=== PATIENT | female | born 1955 | race Caucasian/White ===

== ENCOUNTER 2020-05-09 10:58 | Inpatient (IN) | payer MEDICAID ==
[~2020-05-09] VITALS: Ht 167.6 cm; Wt 69.4 kg
--- NOTE | 2020-05-09 10:58 | NUR ---
PT BIBRA FROM HOME C/O SOB AND BLE SWELLING. PT IS AAOX4, NOT IN RESPIRATORY DISTRESS, HOOKED TO MANAGER PMO, KEPT RESTED AND COMFORTABLE. WILL CONTINUE TO MONITOR.
--- NOTE | 2020-05-09 11:11 | NUR ---
SEEN AND EXAMINED BY .
--- NOTE | 2020-05-09 11:25 | NUR ---
IV LINE ESTABLISHED BLOOD DRAWN AND SENT TO LAB.
--- NOTE | 2020-05-09 11:28 | NUR ---
PEDIATRIC UROLOGIST AT BEDSIDE FOR XRAY.
[2020-05-09 11:35] LABS: LYMPHOCYTES # (AUTO) 0.5 /CMM (0.8-4.8); MONOCYTES # (AUTO) 0.5 /CMM (0.1-1.30)
[2020-05-09 11:39] LABS: BASOPHILS % (AUTO) 0.4 % (0.0-2.0); LYMPHOCYTES % (AUTO) 4.2 % (20.0-44.0); MEAN CORPUSCULAR HGB CONC 33 g/dl (31.0-36.0); MEAN CORPUSCULAR VOLUME 87 fL (82-100); MONOCYTES % (AUTO) 4.9 % (2.0-12.0); NEUTROPHILS # (AUTO) 9.9 /CMM (1.8-8.9); NEUTROPHILS % (AUTO) 90.5 % (43.0-81.0); PLATELET COUNT (AUTO) 551 /CMM (150-450); WHITE BLOOD COUNT (AUTO) 10.9 K/uL (4.3-11.0)
[2020-05-09 11:44] LABS: HEMATOCRIT 15 % (33-45); HEMOGLOBIN 4.8 g/dL (11.5-14.8); RED BLOOD CELL COUNT(AUTO) 1.67 MIL/uL (4.0-5.2)
[2020-05-09 12:40] LABS: CALCIUM, SERUM 8.3 mg/dL (8.5-10.1); CARBON DIOXIDE 25 mmol/L (21-32); CHLORIDE 99 mmol/L (98-107); CREATININE 0.8 mg/dL (0.6-1.3); GLUCOSE 153 mg/dL (74-106); SODIUM SERUM 137 mmol/L (136-145); UREA NITROGEN, BLOOD 15 mg/dL (7-18)
[2020-05-09 12:55] LABS: B-TYPE NATRIURETIC PEPTIDE 121 PG/ML (0-125)
[2020-05-09 13:05] LABS: LYMPHOCYTES % (MANUAL) 4 % (16-48); MONOCYTES % (MANUAL) 3 % (0-11.0); NEUTROPHILS % (MANUAL) 93 (42-76)
--- NOTE | 2020-05-09 13:22 | NUR ---
RESULT RECEIVED FROM MAIN LAB: RAPID COVID NEGATIVE
[2020-05-09] MEDS ORDERED: ACETAMINOPHEN 325 MG TABLET PO PRN (13:30)
[2020-05-09] MEDS ORDERED: PANTOPRAZOLE 40 MG VIAL IV ONE (13:30)
[2020-05-09] MEDS ORDERED: MAGNESIUM HYDROXIDE 30 ML UDC PO PRN (13:30)
[2020-05-09] MEDS ORDERED: MAG HYDROX/AL HYDROX/SIMETH 30 ML UDC PO PRN (13:30)
[2020-05-09] MEDS ORDERED: LORAZEPAM INJ 2 MG/ML VIAL IV PRN (13:30)
[2020-05-09] MEDS ORDERED: Z GUARD REMEDY 2 OZ OINT TP PRN (13:30)
[2020-05-09] MEDS ORDERED: MORPHINE SULFATE INJ 2 MG/ML DISP.SYRIN IV PRN (13:30)
[2020-05-09] MEDS ORDERED: ONDANSETRON HCL/PF 4 MG/2 ML VIAL IVP PRN (13:30)
[2020-05-09] MEDS ORDERED: HYDROCODONE/APAP 5/325MG TABLET PO PRN (13:30)
[2020-05-09] MEDS ORDERED: PANTOPRAZOLE 40 MG VIAL ONE (13:35)
[2020-05-09] MEDS ORDERED: POTASSIUM CHLORIDE 20 MEQ TAB.PRT.SR PO ONE ×2 (14:00→14:01)
[2020-05-09] MEDS ORDERED: PEG 3350/NA SULF,BICARB,CL/KCL 4,000 ML BOTTLE PO ONE ×2 (14:30→18:00)
[2020-05-09 14:34] LABS: FERRITIN 14 ng/mL (8-388)
[2020-05-09 15:16] LABS: IRON, SERUM 6 ug/dl (50-175); TOTAL IRON BINDING CAPACITY 318 ug/dl (250-450)
--- NOTE | 2020-05-09 16:06 | NUR ---
CALLED LAB, STILL PROCESSING BLOOD.
[2020-05-09 17:58] LABS: OCCULT BLOOD STOOL POSITIVE (NEGATIVE)
--- NOTE | 2020-05-09 19:10 | NUR ---
rec'd report from [facility] funk RN for [facility]
--- NOTE | 2020-05-09 19:12 | NUR ---
REPORT GIVEN TO ALBERTINA MARTINEZ FOR [facility].
--- NOTE | 2020-05-09 19:15 | NUR ---
PICKED UP 2ND UNIT OF BLOOD FROM BLOOD BANK
--- NOTE | 2020-05-09 20:16 | NUR ---
ATTEMPTED TO GIVE REPORT. WILL TRY AGAIN
--- NOTE | 2020-05-09 20:27 | NUR ---
gave report to ALBERTINA Huitron for [facility]
[2020-05-09 21:00] VITALS: BP 120/61
[2020-05-09] MEDS: PANTOPRAZOLE 40 MG VIAL IV SCH (21:00)
--- NOTE | 2020-05-09 21:00 | NUR ---
RN NOTES RECEIVED PT. FROM ER WITH DX. OF SEVERE ANEMIA AND POSSIBLE GI BLEED, BLOOD TRANSFUSION RUNNING, A/OX4. SR ON TELE MONITOR HR-85, NOT IN DISTRESS, DENIES PAIN, ADMISSION INSTRUCTION RENDERED, CALL LIGHT WITHIN REACH, SIDERAILSUPX2,WILL CONTINUE TO MONITOR
--- NOTE | 2020-05-09 21:15 | NUR ---
RN NOTES NO REACTION FROM BLOOD., WILL CONTINUE TO MONITOR
--- NOTE | 2020-05-09 21:30 | NUR ---
RN NOTES SHERI CUMMINS, EXPLAINED TYLER THE PATIENT THE IMPORTANCE OF DRINKING THIS MEDICATION
--- NOTE | 2020-05-09 22:10 | NUR ---
ALBERTINA NOTES BLOOD TRANSFUSION FINISHED, NO REACTION WAS NOTED, V/S STABLE Addendum: 05/10/20 at 0414 by TAJ RODRIGUEZ RN RIGHT TIME [id number]
[2020-05-09 23:09] VITALS: BP 99/64
--- NOTE | 2020-05-09 23:10 | NUR ---
RN NOTES BLOOD TRANSFUSION FINISHED, NO REACTION WAS NOTED, V/S STABLE
[2020-05-09 23:13] VITALS: BP 120/61
[2020-05-09 23:40] VITALS: BP 124/89
--- NOTE | 2020-05-09 23:40 | NUR ---
RN NOTES 3RD UNIT PRBC STATED, V/S STABLE, WILL CONTINUE TO MONITOR
[2020-05-09 23:55] VITALS: BP 114/70
--- NOTE | 2020-05-09 23:55 | NUR ---
RN NOTES NO REACTION NOTED FROM BLOOD TRANSFUSION
[2020-05-10] VITALS: BP 124/85
[2020-05-10 02:35] VITALS: BP 109/70
--- NOTE | 2020-05-10 02:35 | NUR ---
RN NOTES BLOOD TRANSFUSION FINISHED, NO REACTION WAS NOTED, V/S STABLE
[2020-05-10 04:00] VITALS: BP 119/54
[2020-05-10] MEDS ORDERED: SORBITOL SOLUTION 30 ML ONE ×2 (04:43→04:45)
[2020-05-10] MEDS ORDERED: SORBITOL SOLUTION 30 ML PO ONE (06:00)
--- NOTE | 2020-05-10 07:00 | NUR ---
RN NOTES AWAKE, NOT IN DISTRESS, DENIES PAIN, MORNING CARE RENDERED, CALL LIGHT WITHIN REACH, SIDERAILSUPX2, PT. NEEDS ATTENDED
[2020-05-10 07:22] LABS: BASOPHILS % (AUTO) 0.2 % (0.0-2.0); EOSINOPHILS % (AUTO) 0.6 % (0.0-6.0); HEMATOCRIT 30 % (33-45); HEMOGLOBIN 9.6 g/dL (11.5-14.8); LYMPHOCYTES # (AUTO) 1.4 /CMM (0.8-4.8); LYMPHOCYTES % (AUTO) 15.2 % (20.0-44.0); MEAN CORPUSCULAR HGB CONC 32 g/dl (31.0-36.0); MEAN CORPUSCULAR VOLUME 89 fL (82-100); MONOCYTES # (AUTO) 0.6 /CMM (0.1-1.30); MONOCYTES % (AUTO) 6.5 % (2.0-12.0); NEUTROPHILS % (AUTO) 77.5 % (43.0-81.0); PLATELET COUNT (AUTO) 423 /CMM (150-450); RED BLOOD CELL COUNT(AUTO) 3.32 MIL/uL (4.0-5.2); WHITE BLOOD COUNT (AUTO) 9.1 K/uL (4.3-11.0)
--- NOTE | 2020-05-10 07:30 | NUR ---
PARARESCUE CRAFTSMAN OPENING NOTES PATIENT IN BED. A/O X4. NO SOB NOTED. NO S/S OF RESPIRATORY DISTRESS. DENIES ANY PAIN. IV ACCESS ON L AC #18 G. SAFETY MEASURES MAINTAINED. BED IN LOWEST POSITION, BRAKES LOCKED. SIDE RAILS UP X2. CALL LIGHT WITHIN REACH. WILL CONTINUE PLAN OF CARE.
[2020-05-10 07:52] LABS: CALCIUM, SERUM 8.5 mg/dL (8.5-10.1); CREATININE 0.6 mg/dL (0.6-1.3); MAGNESIUM 2.5 mg/dL (1.8-2.4); PHOSPHORUS 3.6 mg/dL (2.5-4.9)
[2020-05-10 08:43] VITALS: BP 126/66
[2020-05-10 08:46] LABS: THYROID STIMULATING HORMONE 1.31 uIU/mL (0.358-3.74)
[2020-05-10] MEDS: PANTOPRAZOLE 40 MG VIAL IV SCH ×2 (09:37→21:29)
[2020-05-10] MEDS: IV NS 0.9% 1,000 ML IV PRN (09:37)
[2020-05-10] MEDS: POTASSIUM CL. PREMIX PERIPHER. 50 ML IV SCH ×7 (12:48→18:59)
[2020-05-10] MEDS ORDERED: POTASSIUM CHLORIDE 20 MEQ POWDER PACKET PO ONE ×2 (13:30→18:00)
[2020-05-10 16:29] VITALS: BP 133/79
--- NOTE | 2020-05-10 18:52 | NUR ---
RELISH BLENDER CLOSING NOTES PATIENT IN BED. A/O X4. NO SOB NOTED. IN NO APPARENT DISTRESS. DENIES ANY PAIN. IV ACCESS ON L HAND #22 G. ABLE TO MAKE NEEDS KNOWN. ROUTINE MEDS WERE GIVEN ORDERED. SAFETY MEASURES MAINTAINED. BED IN LOWEST POSITION, BRAKES LOCKED. SIDE RAILS UP X2. CALL LIGHT WITHIN REACH. WILL ENDORSE TO MACHINE BINDING FOLDER FOR [facility]ARIO.
--- NOTE | 2020-05-10 19:00 | NUR ---
RECEIVED IN BED ALERT AND ORIENTATED X4 VERBALIZING HER NEEDS DENIES PAIN AT THIS TME
[2020-05-10 20:00] VITALS: BP_SYST 113; BP_SYST 132; BP_DIAS 66; BP_DIAS 79
[2020-05-11] VITALS: BP 146/72
[2020-05-11 04:00] VITALS: BP 146/85
[2020-05-11] MEDS: IV NS 0.9% 1,000 ML IV PRN ×2 (04:30→16:37)
[2020-05-11 04:58] VITALS: BP 146/85
--- NOTE | 2020-05-11 05:26 | NUR ---
ENDING NOTES: REMAINS A/ORX3 PLEASENT. DENIES PAIN. NO BM THIS 12 HOURS. STATES LAST BM 2/12 DURING THE DAY AND NO SEEN BLEEDING NOWEAKNESS NOTED REMAINS ON CLEAR LIQUIDS NO SOB WITH AMBULATION TO THE BATHROOM
[2020-05-11 07:07] LABS: CALCIUM, SERUM 8.4 mg/dL (8.5-10.1); CREATININE 0.7 mg/dL (0.6-1.3); POTASSIUM 3.6 mmol/L (3.5-5.1)
[2020-05-11 07:12] LABS: BASOPHILS % (AUTO) 0.6 % (0.0-2.0); EOSINOPHILS % (AUTO) 2.7 % (0.0-6.0); HEMATOCRIT 26 % (33-45); HEMOGLOBIN 8.7 g/dL (11.5-14.8); LYMPHOCYTES # (AUTO) 1.1 /CMM (0.8-4.8); LYMPHOCYTES % (AUTO) 17.8 % (20.0-44.0); MEAN CORPUSCULAR HGB CONC 33 g/dl (31.0-36.0); MEAN CORPUSCULAR VOLUME 87 fL (82-100); MONOCYTES # (AUTO) 0.4 /CMM (0.1-1.30); MONOCYTES % (AUTO) 6.6 % (2.0-12.0); NEUTROPHILS # (AUTO) 4.7 /CMM (1.8-8.9); NEUTROPHILS % (AUTO) 72.3 % (43.0-81.0); PLATELET COUNT (AUTO) 377 /CMM (150-450); RED BLOOD CELL COUNT(AUTO) 3.02 MIL/uL (4.0-5.2); WHITE BLOOD COUNT (AUTO) 6.4 K/uL (4.3-11.0)
--- NOTE | 2020-05-11 07:25 | NUR ---
STATISTICS TUTOR OPENING NOTES RECEIVED PATIENT IN BED. A/O X4. NO SOB NOTED. IN NO APPARENT DISTRESS. DENIES ANY PAIN. IV ACCESS ON L HAND #22 G. SAFETY MEASURES MAINTAINED. BED IN LOWEST POSITION, BRAKES LOCKED. SIDE RAILS UP X2. CALL LIGHT WITHIN REACH. WILL CONTINUE PLAN OF CARE.
[2020-05-11 08:00] VITALS: BP 184/96
[2020-05-11] MEDS: PANTOPRAZOLE 40 MG VIAL IV SCH ×2 (08:33→21:52)
[2020-05-11] MEDS ORDERED: ALPRAZOLAM 0.25 MG TABLET PO PRN (12:00)
[2020-05-11] MEDS: ALPRAZOLAM 0.25 MG TABLET PO SCH ×2 (12:35→16:12)
[2020-05-11 16:00] VITALS: BP 145/71
--- NOTE | 2020-05-11 18:11 | NUR ---
MACHINE BASTER CLOSING NOTES PATIENT IN BED. A/O X4. NO SOB NOTED. NO S/S OF RESPIRATORY DISTRESS. DENIES ANY PAIN. IV ACCESS ON L HAND #22 G, INTACT AND PATENT. ABLE TO MAKE NEEDS KNOWN. ROUTINE MEDS WERE GIVEN ORDERED. SAFETY MEASURES MAINTAINED. BED IN LOWEST POSITION, BRAKES LOCKED. SIDE RAILS UP X2. CALL LIGHT WITHIN REACH. WILL ENDORSE TO ASSEMBLER FITTER FOR CONTINUITY OF CARE.
[2020-05-11 20:00] VITALS: BP 146/90
[2020-05-12] VITALS: BP 130/64
--- NOTE | 2020-05-12 01:00 | NUR ---
ALBERTINA NOTES PT ENCOURAGED TO DRINK GOLYTELY. PT REFUSES TO DRINK IT. WILL CONTINUE TO ENCOURAGE PT TO DRINK IT. WILL CONTINUE TO MONITOR. Addendum: 05/13/20 at 0325 by ALBERTO CLAY RN DATE 05/13/20 @0130
[2020-05-12 04:00] VITALS: BP 145/67
[2020-05-12] MEDS ORDERED: SORBITOL SOLUTION 30 ML PO ONE (06:00)
[2020-05-12] MEDS: IV NS 0.9% 1,000 ML IV PRN (06:26)
--- NOTE | 2020-05-12 06:47 | NUR ---
RN NOTES ALERT AND ORIENTED X4, ROOM AIR, NO COMPLAIN OF PAIN, INDEPENDENT OF BOWEL AND BLADDER, NO ADVERSE CHANGE OF CONDITION DURING SHIFT, EGD/COLONOSCOPY CANCELLED PER PATIENT'S REQUEST, SEEN BY PSYCHIATRIST, MAY SIGN AGAINST MEDICAL ADVICE. REMAINED ON CLEAR LIQUID DIET, IVF AT 75 ML/HR.
--- NOTE | 2020-05-12 07:35 | NUR ---
MS RN OPENING NOTES RECEIVED PT SITTING IN BED. A/O X 3. NO SOB NOTED. NO S/S OF RESPIRATORY DISTRESS. IV ACCESS ON R WRIST #20 G, INTACT. ORDERED BACTORBAN BID X 5 DAYS. SAFETY MEASURES MAINTAINED. BED IN LOWEST POSITION, BRAKES LOCKED. SIDE RAILS UP X2. CALL LIGHT WITHIN REACH. WILL CONTINUE PLAN OF CARE. Addendum: 05/12/20 at 7334 by SIMON MCCRAY RN PLEASE DISREGARD
--- NOTE | 2020-05-12 07:54 | NUR ---
SEWING TRIMMER OPENING NOTES RECEIVED PATIENT SITTING IN BED. A/O X4. NO SOB NOTED. IN NO APPARENT DISTRESS. DENIES ANY PAIN. IV ACCESS ON L HAND #22 G, INTACT. ORDERED BACTROBAN BID X 5 DAYS. SAFETY MEASURES MAINTAINED. BED IN LOWEST POSITION, BRAKES LOCKED. SIDE RAILS UP X2. CALL LIGHT WITHIN REACH. WILL CONTINUE PLAN OF CARE.
[2020-05-12 08:00] VITALS: BP 124/79
[2020-05-12] MEDS: ALPRAZOLAM 0.25 MG TABLET PO SCH ×3 (08:35→16:13)
[2020-05-12] MEDS: PANTOPRAZOLE 40 MG VIAL IV SCH ×2 (08:35→22:04)
[2020-05-12] MEDS: MUPIROCIN OINT 2% 22 GM TUBE NS SCH ×2 (08:36→16:13)
[2020-05-12 09:07] LABS: BASOPHILS # (AUTO) 0.1 /CMM (0.0-0.2); BASOPHILS % (AUTO) 0.7 % (0.0-2.0); EOSINOPHILS % (AUTO) 2.7 % (0.0-6.0); HEMATOCRIT 27 % (33-45); HEMOGLOBIN 8.9 g/dL (11.5-14.8); LYMPHOCYTES # (AUTO) 0.8 /CMM (0.8-4.8); LYMPHOCYTES % (AUTO) 9.8 % (20.0-44.0); MEAN CORPUSCULAR HGB CONC 33 g/dl (31.0-36.0); MEAN CORPUSCULAR VOLUME 87 fL (82-100); MONOCYTES # (AUTO) 0.4 /CMM (0.1-1.30); MONOCYTES % (AUTO) 5.3 % (2.0-12.0); NEUTROPHILS # (AUTO) 6.6 /CMM (1.8-8.9); NEUTROPHILS % (AUTO) 81.5 % (43.0-81.0); PLATELET COUNT (AUTO) 378 /CMM (150-450); RED BLOOD CELL COUNT(AUTO) 3.07 MIL/uL (4.0-5.2); WHITE BLOOD COUNT (AUTO) 8.1 K/uL (4.3-11.0)
[2020-05-12 09:14] LABS: CALCIUM, SERUM 8.6 mg/dL (8.5-10.1); CREATININE 0.7 mg/dL (0.6-1.3); POTASSIUM 3.2 mmol/L (3.5-5.1)
[2020-05-12 12:00] VITALS: BP 144/92
[2020-05-12] MEDS: SOD FERRIC GLUC 125 MG in IV NS 0.9% 100 ML IV SCH (14:40)
[2020-05-12 16:00] VITALS: BP 149/83
[2020-05-12] MEDS ORDERED: PEG 3350/NA SULF,BICARB,CL/KCL 4,000 ML BOTTLE PO ONE (18:00)
--- NOTE | 2020-05-12 18:23 | NUR ---
NURSING UNIT COORDINATOR CLOSING NOTES PATIENT IN BED. A/O X4. AFEBRILE. NO SOB NOTED. IN NO APPARENT DISTRESS. DENIES ANY PAIN. IV ACCESS ON L HAND #22 G, INTACT AND PATENT. ALL NEEDS HAVE BEEN MET. ROUTINE EMDS WERE GIVEN ORDERED. INSTRUCTED ABOUT GOLYTELY AND REMINDED TO BE ON NPO AFTER MIDNIGHT. ROUTINE MEDS WERE GIVEN ORDERED. SAFETY MEASURES MAINTAINED. BED IN LOWEST POSITION, BRAKES LOCKED. SIDE RAILS UP X2. CALL LIGHT WITHIN REACH. WILL ENDORSE TO TECHNICAL SERVICES SPECIALIST FOR DARIO.
--- NOTE | 2020-05-12 20:22 | NUR ---
RN NOTES PATIENT IN BED. A/O X4. AFEBRILE. NO SOB NOTED. IN NO APPARENT DISTRESS. DENIES ANY PAIN. IV ACCESS ON L HAND #22 G, INTACT AND PATENT. ALL NEEDS HAVE BEEN MET AT THIS TIME. INSTRUCTED ABOUT GOLYTELY AND REMINDED TO BE ON NPO AFTER MIDNIGHT. SAFETY MEASURES MAINTAINED. BED IN LOWEST POSITION, BRAKES LOCKED. SIDE RAILS UP X2. CALL LIGHT WITHIN REACH.WILL CONTINUE TO MONITOR.
[2020-05-12 21:40] VITALS: BP 137/77
[2020-05-13 00:48] VITALS: BP 137/75
--- NOTE | 2020-05-13 01:30 | NUR ---
RN NOTES ENCOURAGED PT TO DRINK GOLYTELY PT INSISTS SHE WILL DRINK IT LATER RISK AND BENEFITS EXPLAINED X3. WILL CONTINUE TO MONITOR.
[2020-05-13 04:51] VITALS: BP 153/99
[2020-05-13] MEDS ORDERED: SORBITOL SOLUTION 30 ML PO ONE (06:00)
[2020-05-13 06:43] LABS: BASOPHILS # (AUTO) 0.1 /CMM (0.0-0.2); BASOPHILS % (AUTO) 0.9 % (0.0-2.0); EOSINOPHILS % (AUTO) 3.1 % (0.0-6.0); HEMATOCRIT 27 % (33-45); HEMOGLOBIN 8.6 g/dL (11.5-14.8); LYMPHOCYTES # (AUTO) 0.8 /CMM (0.8-4.8); LYMPHOCYTES % (AUTO) 12.6 % (20.0-44.0); MEAN CORPUSCULAR HGB CONC 32 g/dl (31.0-36.0); MEAN CORPUSCULAR VOLUME 87 fL (82-100); MONOCYTES # (AUTO) 0.4 /CMM (0.1-1.30); MONOCYTES % (AUTO) 6.7 % (2.0-12.0); NEUTROPHILS # (AUTO) 4.8 /CMM (1.8-8.9); NEUTROPHILS % (AUTO) 76.7 % (43.0-81.0); PLATELET COUNT (AUTO) 387 /CMM (150-450); RED BLOOD CELL COUNT(AUTO) 3.08 MIL/uL (4.0-5.2); WHITE BLOOD COUNT (AUTO) 6.3 K/uL (4.3-11.0)
[2020-05-13 07:08] LABS: CALCIUM, SERUM 8.4 mg/dL (8.5-10.1); CREATININE 0.6 mg/dL (0.6-1.3); POTASSIUM 3.1 mmol/L (3.5-5.1)
--- NOTE | 2020-05-13 07:29 | NUR ---
RN NOTES PT FINISHED PREP ALL NURSING NEEDS MET. CALL LIGHT WITHIN REACH.SAFETY PRECAUTIONS FOLLOWED. PT ALERT IN BED NO PAIN OR DISCOMFORT VISIBLE OR REPORTED WILL ENDORSE CARE. TO DAY SHIFT NURSE.
[2020-05-13] MEDS ORDERED: LORAZEPAM INJ 2 MG/ML VIAL IV ONE (08:00)
--- NOTE | 2020-05-13 08:00 | NUR ---
ALIGNMENT SPECIALIST OPENING NOTE PATIENT IS IN BED RESTING, PATIENT IS IN NO ACUTE DISTRESS. PATIENT IS ON ROOM AIR TOLERATING WELL. NO SOB NOTED. PATIENT IS ON TELE MONITOR READING SINUS TACHY 106. SAFETY PRECAUTIONS ARE ON. BED IN THE LOWEST POSITION. SIDE RAILS ARE UP, CALL LIGHT WITHIN REACH WILL CONTINUE TO MONITOR CLOSELY THROUGH OUT THE SHIFT.
[2020-05-13] MEDS: POTASSIUM CL. PREMIX PERIPHER. 50 ML IV SCH ×6 (08:04→17:24)
[2020-05-13] MEDS: ALPRAZOLAM 0.25 MG TABLET PO SCH ×3 (09:00→17:22)
[2020-05-13] MEDS: PANTOPRAZOLE 40 MG VIAL IV SCH ×2 (09:10→21:16)
[2020-05-13] MEDS: MUPIROCIN OINT 2% 22 GM TUBE NS SCH ×2 (09:11→17:23)
--- NOTE | 2020-05-13 09:11 | NUR ---
INSURANCE SALES SPECIALIST NOTE DID NOT ADMINISTER SCHEDULED XANAX MEDICATION, PATIENT RECEIVED EARLIER ATIVAN DUE TO SEVERE ANXIETY. MD IS AWARE.
--- NOTE | 2020-05-13 13:48 | NUR ---
MS RN NOTE DID NOT ADMINISTER SCHEDULED MEDICATION XANAX PATIENT WENT TO PROCEDURE DURING THIS TIME.
--- NOTE | 2020-05-13 15:31 | NUR ---
MS RN NOTE PATIENT IS BACK FROM THE SURGERY, PATIENT IS IN NO ACUTE DISTRESS. NO SOB NOTED. VITALS ARE TEMP 97.8, RESPIRATIONS 18, BP 156/103, PULSE 90, 02 IS 99%.
[2020-05-13 16:00] VITALS: BP 154/80
[2020-05-13] MEDS: SOD FERRIC GLUC 125 MG in IV NS 0.9% 100 ML IV SCH (17:22)
[2020-05-13] MEDS ORDERED: POTASSIUM CHLORIDE 20 MEQ TAB.PRT.SR PO ONE (19:00)
--- NOTE | 2020-05-13 19:56 | NUR ---
COMPLIANCE COUNSEL OPENING NOTE PATIENT IS IN BED RESTING, PATIENT IS IN NO ACUTE DISTRESS. PATIENT IS ON ROOM AIR TOLERATING WELL. NO SOB NOTED. SAFETY PRECAUTIONS ARE ON. BED IN THE LOWEST POSITION. SIDE RAILS ARE UP, CALL LIGHT WITHIN REACH. ENDORSE PATIENT TO MANAGEMENT INFORMATION SYSTEMS DIRECTOR NURSE FOR D[facility]IO. Addendum: 05/13/20 at 1957 by FRACISCO SCHULTZ RN MS RN CLOSING NOTE
--- NOTE | 2020-05-13 19:56 | NUR ---
RN NOTES PATIENT IS IN BED RESTING, PATIENT IS IN NO ACUTE DISTRESS. PATIENT IS ON ROOM AIR TOLERATING WELL. NO SOB NOTED. PATIENT IS ON TELE MONITOR READING SINUS TACHY 106. SAFETY PRECAUTIONS ARE ON. BED IN THE LOWEST POSITION. SIDE RAILS ARE UP, CALL LIGHT WITHIN REACH WILL CONTINUE TO MONITOR.
[2020-05-13 20:00] VITALS: BP 140/79
[2020-05-14 06:55] LABS: BASOPHILS # (AUTO) 0.1 /CMM (0.0-0.2); BASOPHILS % (AUTO) 1.3 % (0.0-2.0); EOSINOPHILS % (AUTO) 4.1 % (0.0-6.0); HEMATOCRIT 25 % (33-45); HEMOGLOBIN 8.3 g/dL (11.5-14.8); LYMPHOCYTES # (AUTO) 0.8 /CMM (0.8-4.8); LYMPHOCYTES % (AUTO) 20.7 % (20.0-44.0); MEAN CORPUSCULAR HGB CONC 33 g/dl (31.0-36.0); MEAN CORPUSCULAR VOLUME 87 fL (82-100); MONOCYTES # (AUTO) 0.3 /CMM (0.1-1.30); MONOCYTES % (AUTO) 7.6 % (2.0-12.0); NEUTROPHILS # (AUTO) 2.7 /CMM (1.8-8.9); NEUTROPHILS % (AUTO) 66.3 % (43.0-81.0); PLATELET COUNT (AUTO) 349 /CMM (150-450); RED BLOOD CELL COUNT(AUTO) 2.89 MIL/uL (4.0-5.2)
[2020-05-14 07:11] LABS: CALCIUM, SERUM 8.5 mg/dL (8.5-10.1); CREATININE 0.6 mg/dL (0.6-1.3); POTASSIUM 3.7 mmol/L (3.5-5.1)
--- NOTE | 2020-05-14 07:31 | NUR ---
RN NOTES PATIENT IS IN BED RESTING, PATIENT IS IN NO ACUTE DISTRESS. PATIENT IS ON ROOM AIR TOLERATING WELL. NO SOB NOTED. SAFETY PRECAUTIONS IN PLACE. BED IN THE LOWEST POSITION. SIDE RAILS ARE UP, CALL LIGHT WITHIN REACH WILL ENDORSE CARE TO DAY SHIFT.
[2020-05-14 08:12] VITALS: BP 119/77
[2020-05-14] MEDS: MUPIROCIN OINT 2% 22 GM TUBE NS SCH ×2 (09:00→17:00)
[2020-05-14] MEDS: ALPRAZOLAM 0.25 MG TABLET PO SCH ×3 (09:15→17:58)
[2020-05-14] MEDS: PANTOPRAZOLE 40 MG VIAL IV SCH (09:15)
--- NOTE | 2020-05-14 12:49 | NUR ---
MS RN NOTE PER MD ORDER, PT CAN ADVANCE DIET TOLERATED. ORDER HAS BEEN CARRIED OUT.
[2020-05-14] MEDS ORDERED: FERR325T23 PO (14:05)
[2020-05-14] MEDS: SOD FERRIC GLUC 125 MG in IV NS 0.9% 100 ML IV SCH (14:30)
[2020-05-14 16:00] VITALS: BP 125/79
--- NOTE | 2020-05-14 18:23 | NUR ---
MS RN NOTE PT SIGNED ALL DC PAPERWORK. PT IS STABLE, A/O X4. PT IS CLOTHED, GROOMED AND AWARE. PT VERBALIZED UNDERSTANDING OF ALL DISCHARGE PAPERWORK INCLUDING MEDICATIONS. PT WILL BE GOING HOME VIA TAXI CAB - STATED SHE HAS A HOUSE SUNSHINE. PT HAS ALL NECESSARY DC PAPERWORK. IV AND WRISTBAND REMOVED. WAITING ON TAXI TO DC.
--- NOTE | 2020-05-14 19:12 | NUR ---
MS RN NOTE PT LEFT IN TAXI CAB 2 [id number].
== END 2020-05-14 19:08 | disposition home or self-care (01) | DRG 241 ==
LOC: ER 10:59 → TRANSITION 17:54 → TELE 19:49 → MED 05-13 11:44
PROVIDERS: ADMIT Nurse Practitioner Acute Care; ATTEND Hospitalist
PROC: 30233N1 Transfusion of Nonautologous Red Blood Cells into Peripheral Vein, Percutaneous Approach (ICD-10-PCS; principal; 2020-05-09)
PROC: 0DB68ZX Excision of Stomach, Via Natural or Artificial Opening Endoscopic, Diagnostic (ICD-10-PCS; 2020-05-13)
PROC: 0DJD8ZZ Inspection of Lower Intestinal Tract, Via Natural or Artificial Opening Endoscopic (ICD-10-PCS; 2020-05-13)
DX: K25.4 Chronic or unspecified gastric ulcer with hemorrhage (principal); E87.6 Hypokalemia; R73.9 Hyperglycemia, unspecified; D50.0 Iron deficiency anemia secondary to blood loss (chronic); Z20.822 Contact with and (suspected) exposure to COVID-19; D47.3 Essential (hemorrhagic) thrombocythemia; F41.1 Generalized anxiety disorder; K26.9 Duodenal ulcer, unspecified as acute or chronic, without hemorrhage or perforation; M79.89 Other specified soft tissue disorders
CPT/HCPCS: 36415; 71045-TC; 80048-TC; 80061-TC; 82272-TC; 82728-TC; 83540-TC; 83735-TC; 83880; 84100-TC; 84443-TC; 84484-TC; 85025-TC; 86850-TC; 87081-TC; 88305-TC; 88313-TC; 88342; 93970-TC; C9113; C9803; G0378; J2060; J2704; J2916; J3480; J7030; J7050; P9016-BL